=== PATIENT | male | born 2000 | race Caucasian/White ===

== ENCOUNTER 2022-07-08 10:28 | Emergency (ER) | payer OTHER ==
[~2022-07-08] VITALS: Ht 165.1 cm; Wt 90.0 kg
[2022-07-08 10:44] VITALS: BP 129/84
[2022-07-08 11:01] VITALS: BP 113/66
[2022-07-08] MEDS ORDERED: AMOX/K CLAV875 M1 PO (11:58)
[2022-07-08 12:05] VITALS: BP 113/66
== END 2022-07-08 11:28 | disposition home or self-care (01) ==
LOC: ED 10:28
DX: S41.152A Open bite of left upper arm, initial encounter (principal); W54.0XXA Bitten by dog, initial encounter

== ENCOUNTER 2022-11-17 16:38 | Observation (INO) | payer OTHER ==
[2022-11-17] VITALS (8 sets, daily range): BP systolic 113–137; BP diastolic 63–90
[~2022-11-17] VITALS: Ht 165.1 cm; Wt 100.4 kg
[~2022-11-17 16:38] MED LIST: AMOX/K CLAV875 M1 PO
--- NOTE | 2022-11-17 17:16 | NUR ---
patient presents with abdominal pain x 3 days. liquid stools and vomiting. RING MAKING MACHINE OPERATOR at the bedside to assess. plan of care discussed. IV access obtained in the right ac, 20g. first set of blood cultures obtained during blood draw.
--- NOTE | 2022-11-17 17:25 | NUR ---
PATIENT IS RESTING IN THE STRETCHER. PATIENT VERBALIZES NO NEEDS AT THIS TIME.
--- NOTE | 2022-11-17 17:45 | NUR ---
PROVIDER NOTIFIED OF PATIENTS PAIN.
[2022-11-17 18:03] LABS: BASO% 0.5 % (0-3); EOS% 1.1 % (0-8); HEMATOCRIT 39.9 % (39.0-50.0); HEMOGLOBIN 13.4 g/dl (14.0-18.0); IMMATURE GRANULOCYTES 0.5 % (0.0-5.0); LYMPH% 15.4 % (15-41); MEAN CELL VOLUME 84.4 fL CALC (80.0-100.0); MEAN CORPUSCULAR HGB 28.3 pG CALC (26.0-32.0); MEAN CORPUSCULAR HGB CONC 33.6 g/dL CAL (32.0-36.0); MONO% 12.8 % (2-13); NEUT# 4.56 thou/uL (1.82-7.42); NEUT% 69.7 % (42-76); RED BLOOD COUNT 4.73 mill/uL (4.70-6.10); RED CELL DISTRI WIDTH 12.5 % (11.5-15.5)
[2022-11-17 18:13] LABS: ALBUMIN 3.6 g/dL (3.2-5.0); ALKALINE PHOSPHATASE 75 u/l (38-126); ANION GAP 10 (6-22 (CALC)); BUN 13 mg/dL (9-20); BUN/CREATININE RATIO 15 (12-20 (CALC)); CARBON DIOXIDE 28 mmol/l (22-30); CHLORIDE 102 mmol/l (95-108); CREATININE 0.9 mg/dL (0.7-1.3); GFR FOR AFR.AMER. > 60 ML/MIN (>=60 (CALC)); GFR OTHER RACES > 60 ML/MIN (>=60 (CALC)); LIPASE 131 u/l (23-300); POTASSIUM 3.5 mmol/l (3.5-5.1); SGOT/AST 34 u/l (17-59); SODIUM 135 mmol/l (137-146); TOTAL PROTEIN 6.3 g/dL (6.3-8.2)
--- NOTE | 2022-11-17 18:16 | NUR ---
PATIENT IS SITTING IN BED. PATIENT REQUESTED WATER. PROVIDER ADVISED PATIENT OF NPO STATUS. PATIENT VERBALIZED UNDERSTANDING.
--- NOTE | 2022-11-17 18:51 | NUR ---
PATIENT RETURNED FROM CT. PATIENT IN THE STRETCHER AND VERBALIZED NO NEEDS.-
--- NOTE | 2022-11-17 19:00 | NUR ---
REPORT RECEIVED FROM ANGELA RIVERA AND CARE OF PT ASSUMED AT THIS TIME.
[2022-11-17 19:22] LABS: URINE BLOOD DIPSTICK Negative (NEGATIVE); URINE COLOR Yellow; URINE GLUCOSE - DIPSTICK Negative (NEGATIVE); URINE KETONE Trace mg/dL (NEGATIVE); URINE LEUK ESTERASE Negative (NEGATIVE); URINE NITRITE - DIPSTICK Negative (Negative); URINE PH 5.5 (4.5-8.0); URINE PROTEIN - DIPSTICK Negative (NEG-TRACE); URINE SPECIFIC GRAVITY >=1.030; URINE UROBILINOGEN - DIPSTICK 0.2 E.U./dL (0.2)
--- NOTE | 2022-11-17 19:24 | NUR ---
PT RESTING IN BED USING PHONE. RESP EVEN AND UNLABORED. NO DISTRESS NOTED. A&O X 3. SKIN W/P/D. REPORTS PAIN 06/18. VSS. INFORMED PT OF PLAN OF CARE AND CONTINUED WAIT TIME AND HE VERBALIZED UNDERSTANDING. CALL LIGHT IN REACH.
--- NOTE | 2022-11-17 20:20 | NUR ---
PT CONTINUES RESTING IN BED. RESP EVEN AND UNLABORED. NO DISTRESS NOTED. DRINKING WATER. REPORTS PAIN 3/10 AND DECLINES PAIN MEDICATION. CALL LIGHT IN REACH.
--- NOTE | 2022-11-17 21:16 | NUR ---
PT RESTING IN BED W/ NO CHANGE IN STATUS. VSS. CALL LIGHT IN REACH. ATTEMPTED TO CALL REPORT, NURSE NOT AVAILABLE.
--- NOTE | 2022-11-17 21:36 | NUR ---
REPORT CALLED TO JYOTI GASTON
[2022-11-18 04:57] VITALS: BP 124/63
--- NOTE | 2022-11-18 07:20 | NUR ---
PERFROMED BEDSIDE REPORT WITH NIGHTSHIFT NURSE. PT NOTED LAYING SEMI FOWELRS IN BED, RESTING COMFORTABLY AT THIS TIME. PT ON RM AIR, NO S/S OF DISTRESS. CALL LIGHT WITHIN REACH AND SAFETY PRECAUTIONS IN PLACE.
[2022-11-18 07:40] VITALS: BP 112/66
--- NOTE | 2022-11-18 12:00 | NUR ---
PT IS LAYING IN BED SEMI FOWELRS. LUNCH TRAY ON BEDSIDE TABLE BUT PT REFUSES TO EAT AT THIS TIME STATING THEY HAVE NO APPETITE. DENIES ANY PAIN OR N/V AT THIS TIME. CALL LIGHT WITHIN REACH AND SAFETY PRECAUTIONS IN PLACE.
[2022-11-18 15:30] VITALS: BP 114/62
--- NOTE | 2022-11-18 17:00 | NUR ---
PT IS USING RESTROOM AT THIS TIME. DOES STATE FEELING "A LITTLE BETTER" PT DOES SEEM MORE AWAKE. DENIES ANY PAIN. CALL LIGHT WITHIN REACH AND SFAETY PRECAUTIONS IN PLACE.
[2022-11-18 19:00] VITALS: BP 114/65
--- NOTE | 2022-11-18 19:30 | NUR ---
PT STATES THAT HE WANTS TO GO HOME. FEELS LIKE HE DOES NOT NEED TO BE HERE ANYMORE TO NOT BE OVER CHARGED. ADVISED PT TO STAY. PT IS STILL ADEMENT ON LEAVING. WILL CALL PROVIDER.
[2022-11-18 19:43] VITALS: BP 114/65
--- NOTE | 2022-11-18 20:20 | NUR ---
SPOKE WITH PROVIDER ABOUT PT BEING ADEMENT ON LEAVING AMA. PROVIDER ADVISED TO TELL PT NOT TO LEAVE AND TO MAKE SURE PT UNDERSTOOD THAT HE WOULD BE LEAVING AMA. PT ADVISED TO LOOK FOR A PRIMARY PHYSICIAN AND TO HAVE A FOLLOW UP WITH THEM. PT SHOWS UNDERSTANDING AND IS READY TO LEAVE. FORM SIGNED AND IV TAKEN OUT.
--- NOTE | 2022-11-18 20:46 | NUR ---
PT LEFT [facility] FLOOR AMA BY FOOT.
== END 2022-11-18 20:46 | disposition left against medical advice (07) ==
LOC: ED 16:38 → ED-I 19:30 → ED 19:40 → MS2 19:41
PROVIDERS: Nurse Practitioner; ADMIT Internal Medicine; ATTEND Internal Medicine
DX: K52.9 Noninfective gastroenteritis and colitis, unspecified (principal); F17.210 Nicotine dependence, cigarettes, uncomplicated
CPT/HCPCS: G0378; J1650; Q9967